=== PATIENT | female | born 1960 | race Caucasian/White ===

== ENCOUNTER 2016-08-18 07:03 | Day surgery (SDC) | payer MEDICARE, BC ==
[~2016-08-18 07:03] MED LIST: ASPIRIN EC81 MG PO; CALCIUM 600 +1 EA12 PO; CATAPRES0.1 M1 PO; CYCLOBENZAPRINE5 M1 PO; DURAGESIC1 EAC3 TOP; ESTRACE1 M3 PO; INDERAL XL80 MG PO; MIRALAX17 G2 PO; OMEPRAZOLE40 M2 PO; PRAVACHOL40 M1 PO; PRISTIQ ER100 MG PO; QUILLIVANT5 MG/1 ML PO; REMERON30 M1 PO; RESTORIL30 M1 PO; REXULTI2 MG PO; ROZEREM8 M1 PO; VITAMIN C1000 M1 PO; VITAMIN D31000 UNI3 PO; XANAX1 M1 PO
== END 2016-08-18 10:59 ==
LOC: ENDOS 07:03 → SHSA 07:06 → ENDOS 08:40
PROC: 0DJ08ZZ Inspection of Upper Intestinal Tract, Via Natural or Artificial Opening Endoscopic (ICD-10-PCS; principal; 2016-08-18)
PROC: 0DB88ZX Excision of Small Intestine, Via Natural or Artificial Opening Endoscopic, Diagnostic (ICD-10-PCS; 2016-08-18)
PROC: 0DB68ZX Excision of Stomach, Via Natural or Artificial Opening Endoscopic, Diagnostic (ICD-10-PCS; 2016-08-18)
DX: K29.50 Unspecified chronic gastritis without bleeding (principal); K63.3 Ulcer of intestine; K83.8 Other specified diseases of biliary tract; F41.9 Anxiety disorder, unspecified; F32.9 Major depressive disorder, single episode, unspecified; K21.9 Gastro-esophageal reflux disease without esophagitis; F17.210 Nicotine dependence, cigarettes, uncomplicated; Z88.1 Allergy status to other antibiotic agents; Z79.899 Other long term (current) drug therapy; Z98.890 Other specified postprocedural states; Z90.49 Acquired absence of other specified parts of digestive tract